=== PATIENT | male | born 1945 | race Caucasian/White ===

== ENCOUNTER 2019-10-13 10:35 | Inpatient (IN) | payer OTHER ==
[~2019-10-13] VITALS: Ht 167.6 cm; Wt 91.6 kg
[2019-10-13 10:59] VITALS: Ht 167.6 cm; Wt 91.6 kg
--- NOTE | 2019-10-13 10:59 | NUR ---
PT BIB AMBULACE, C/O TESTICULAR PAIN X4 DAY, SUDDEN ONSET. PT STATES PAIN IS SHARP. NO KNOWN INJURY TO TESTICLES PER PATIENT. PT STATES BRURNING URINATION, FLANK PAIN AND CONSTIPATION. PT PRESENT WITH LT HARD CAST HAND FX FROM 3-4 WEEKS AGO. PT STATES HX OF POSTRATE CANCER. PT STATES HE HAD A SMALL, HARD, AND BLACK IN COLOR WITHOUT BLOOD BM THIS MORNING. PT AAOX4, NO DISTRESS NOTED. PT DENIES HEADACHE, SOB, COUGH, ABDOMINAL PAIN, N/V/D. PT PLACED ON ECG MONITOR, VS TAKEN. PT PLACED ON GOWN, X2 RAILS UP. RESPIRATIONS E/U, ALL LUNG BUCKLEY CLEAR TO AUSCULTATION. CALL LIGHT WITHIN REACH AND DAUGHTER AT BEDSIDE. MSE COMPLETED BY .
[2019-10-13 11:20] LABS: BASOPHIL % 0.3 % (0-2); PLATELET COUNT 286 x10^3mcL (130-400)
[2019-10-13 11:21] LABS: RED CELL DISTRIBUTION WIDTH 14.7 % (11.5-14.5)
[2019-10-13 11:54] LABS: UA SPECIFIC GRAVITY 1.025 (1.005-1.035); microscopic required? YES; urine erythrocyte NEGATIVE (NEGATIVE)
[2019-10-13 12:09] LABS: ALKALINE PHOSPHATASE 85 U/L (46-116); ALT/SGPT 21 U/L (16-63); AST/SGOT 12 U/L (15-37); BILIRUBIN TOTAL 0.5 mg/dL (0.20-1.00); CARBON DIOXIDE 28.8 mmol/L (21-32); CHLORIDE SERUM 101 mmol/L (98-107); CREATININE SERUM 1.5 mg/dL (0.7-1.3); GLUCOSE SERUM 213 mg/dL (74-106); LIPASE 132 IU/L (73-393); POTASSIUM SERUM 4.3 mmol/L (3.5-5.1); SODIUM SERUM 135 mmol/L (136-145); TOTAL PROTEIN, SERUM 7.3 g/dL (6.4-8.2)
[2019-10-13 12:15] LABS: CALCIUM 8.8 mg/dL (8.5-10.1)
[2019-10-13 12:16] LABS: ALBUMIN 3.1 g/dL (3.4-5.0)
--- NOTE | 2019-10-13 13:08 | NUR ---
PT TAKEN FOR A CT SCAN VIA [facility].
--- NOTE | 2019-10-13 13:16 | NUR ---
ENDORESED PT TO ILANA BAKER.
[2019-10-13] MEDS ORDERED: GLIPIZIDE XL10 M1 PO (16:33)
[2019-10-13] MEDS ORDERED: TRADJENTA5 M1 PO (16:34)
[2019-10-13] MEDS ORDERED: ASPIRIN ADULT L81 M5 PO (16:35)
[2019-10-13] MEDS ORDERED: AMLODIPINE BESY1 CA1 PO (16:36)
[2019-10-13] MEDS ORDERED: LOTENSIN20 MG PO (16:37)
[2019-10-13] MEDS ORDERED: ACTOS30 M1 PO (16:38)
[2019-10-13] MEDS ORDERED: SIMVASTATIN5 M2 (16:38)
[2019-10-13] MEDS ORDERED: ZYLOPRIM100 MG PO (16:39)
[2019-10-13] MEDS ORDERED: TAMSULOSIN HCL0.4 MG PO (16:40)
[2019-10-13] MEDS ORDERED: FINASTERIDE1 MG PO (16:40)
--- NOTE | 2019-10-13 17:07 | NUR ---
REPORT GIVEN TO LAINEY BAKER, ALL QUESTIONS ADDRESSED.
--- NOTE | 2019-10-13 17:23 | NUR ---
RECEIVED PT VIA W/C FROM E/D, ACCOMPANIED BY TRANSPORTER. PT A/A/O X 4, CALM, COOPERATIVE. AMBULATORY, NO GAIT OR BALANCE IMPAIRMENT NOTED WHEN WALKING FROM W/C TO BED, HARD CAST TO 2/2 FALL 3 WKS AGO, FALL RISK PROTOCOL IN PLACE. DENIES CHEST PAIN OR DISCOMFORT AT THIS TIME. SCD BY BEDSIDE. NO ACUTE RESPIRATORY DISTRESS NOTED. ABD SOFT, ROUND, NON-TENDER, NORMOACTIVE BOWEL SOUNDS X 4 QUADS, LAST BM 10/13/2019, SMALL/HARD/BLACK. BURNING ON URINATION, C/O CONT SHARP BLQ PAIN 4/10, EXACERBATED BY MOVEMENT, RELIEVED MILDLY BY REST AND PAIN MEDICATIONS. IV SITE LAC 20G, CDI. ORIENTED PT TO ROOM, BED CONTROLS, CALL LIGHT SYSTEM. SIDE RAILS UP X 2, BED IN LOW POSITION. WILL ENDORSE TO SAMUEL RETANA.
--- NOTE | 2019-10-13 17:58 | NUR ---
BLOOD SUGAR WAS 56 THEN 62 Pt STATED HE HAS NOT ATE ANYTHING WILL GIVE FOOD Pt ON CLEAR LIQUID DIET THEN RECHECK SUGAR. Pt V/S STABLE DENIES DEIZZINESS OR PAIN. ALL NEEDS ATTENDED TO. BED IN LOWEST POSITION CALL LIGHT WITHIN REACH. WILL CONTINUE TO MONITOR.
[2019-10-13 18:04] VITALS: BP 131/68
--- NOTE | 2019-10-13 18:44 | NUR ---
Pt SITTING UP AT THE EDGE OF BED EATING DINNER TOLERATING CLEAR LIQUID DIET. Pt DENIES ANY PAIN AT THIS TIME. IV ON LAC PATENT AND INTACT. SAFETY PRECAUTIONS IN PLACE. Pt DENIES ANY N/V AT THIS TIME. ALL QUESTIONS AND CONCERNS ADDRESSED AT THIS TIME. BED IN LOWEST POSITION CALL LIGHT WITHIN REACH. WILL ENDORSE CARE TO NIGHT NURSE.
--- NOTE | 2019-10-13 20:06 | NUR ---
Pt. received from day shift, currently resting in bed awake. Pt. is a/o x4, able to make needs known, able to follow commands, no c/o h/a at this time. Pt. is breathing on RA, even and unlabored, no c/o of SOB or s/o distress. Pt. at this time has no c/o pain, resting comfortably, no c/o chest pain also. Otherwise, pt. stable, needs and questions addressed at time of shift change. Pt. safety in check w/ call light placed within reach, educated pt. on when and how to use call light system, will continue to monitor.
[2019-10-13 21:16] VITALS: BP 123/69
--- NOTE | 2019-10-14 00:40 | NUR ---
Pt. asleep throughout shift at this time. Easily arousable using verbal stimuli. Pt. has no c/o of pain, s/o distress or SOB. Pt. breathing even and unlabored and even on RA. Otherwise, pt. stable, BS 110 when checked. Medication admin tolerated as ordered, will continue to monitor pt.
[2019-10-14 05:12] VITALS: BP 120/63
--- NOTE | 2019-10-14 06:09 | NUR ---
Pt. at this time, asleep, easily arousable using verbal stimuli. Pt. noted to be asleep throughout shift, no c/o of pain, s/o SOB or acute distress. Pt. was able to void 2x during shift, no BM. Otherwise, pt. stable, needs have been met and questions addressed, will continue to monitor pt. and endorse to oncoming shift RN.
[2019-10-14 06:32] LABS: BASOPHIL % 0.4 % (0-2); PLATELET COUNT 256 x10^3mcL (130-400); RED CELL DISTRIBUTION WIDTH 14.4 % (11.5-14.5)
[2019-10-14 07:01] LABS: CALCIUM 8.2 mg/dL (8.5-10.1); CARBON DIOXIDE 28.7 mmol/L (21-32); CHLORIDE SERUM 104 mmol/L (98-107); CREATININE SERUM 1.2 mg/dL (0.7-1.3); GLUCOSE SERUM 97 mg/dL (74-106); POTASSIUM SERUM 4.2 mmol/L (3.5-5.1); SODIUM SERUM 139 mmol/L (136-145)
--- NOTE | 2019-10-14 07:10 | NUR ---
SEEN AOX4, NOT IN DISTRESS, MEDSURG, PALPABLE PULSES, NO EDEMA, CTA ON BLF, +BS, MILD PAIN AT HYPOGASTRIUM 4/10, NO WEAKNESS, FULL ROM, SKIN DRY AND INTACT, PAIN TOLERABLE, IV INTACT AND PATENT AT LAC. NO REDNESS OR INFILTRATION. CALL LIGHT WITHIN REACH. BED AT LOWEST POSITION.
[2019-10-14 08:09] VITALS: BP 123/64
--- NOTE | 2019-10-14 09:44 | NUR ---
CA 8.2. DR MILLER MADE AWARE.
--- NOTE | 2019-10-14 09:46 | NUR ---
STOOL CULTURE ORDERED PER DR MILLER.
--- NOTE | 2019-10-14 10:37 | NUR ---
MIRALAX PO GIVEN
[2019-10-14 11:38] VITALS: BP 128/69
--- NOTE | 2019-10-14 12:52 | NUR ---
ACCUCHECK DONE CBG 163. FLAGYL IVPB INFUSING WELL AT 100CC/HR. NO REDNESS OR INFITLRATION
[2019-10-14 16:13] VITALS: BP 101/68
--- NOTE | 2019-10-14 17:22 | NUR ---
ACCUCHECK DONE WITH CBG 129. NO INSULIN REQUIRED.
--- NOTE | 2019-10-14 18:23 | NUR ---
IV INFILTRATED AT RAC . REINSERTED IV AT RFA. NO REDNESS OR INFITLRATION. FLAGYL IVPB INFUSING WELL AT 100CC/HR.
--- NOTE | 2019-10-14 18:57 | NUR ---
STOOL OBTAINED FOR OCCULT BLOOD PER DR CORONADO'S ORDER.
--- NOTE | 2019-10-14 19:00 | NUR ---
DR MILLER MADE AWARE OF STOOL OCCULT POSITIVE RESULT
[2019-10-14 19:20] VITALS: BP 122/58
--- NOTE | 2019-10-14 19:20 | NUR ---
RECEIVED PT AWAKE ALERT AND VERBALLY RESPONSIVE SITIING BY THE BED.DENIES CHESTPAIN AT THIS TIME.BP 122/58 MMHG,HR 90.DENIES ABDOMINAL PAIN.NO N/V NOTED.WIOLL CONTINUE TO MONITOR.
--- NOTE | 2019-10-15 04:37 | NUR ---
PT WITH ON AND OFF SLEEPING PATTERN.DENIES ANY PAIN ALL NIGHT.NO ASE NOTED FROM LEVAQUIN AND FLAGYL IV ATB.ALL NEEDS MET.WILL CONTINUE TO MONITOR.
[2019-10-15 05:46] VITALS: BP 119/61
--- NOTE | 2019-10-15 07:10 | NUR ---
SEEN AOX4, NOT IN DISTRESS, CTA ON BLF, PALPABLE PULSES, LH EDEMA, +BS, NO PAIN AT THIS TIME, NO N/V, ABLE TO HAVE BM, VOIDS WITH NO DYSURIA, IV INTACT AND PATENT AT LFA, LH COVERED WITH CAST , CDI.
[2019-10-15 07:47] VITALS: BP 106/47
--- NOTE | 2019-10-15 09:15 | NUR ---
MIRALAX PO GIVEN.
--- NOTE | 2019-10-15 09:40 | NUR ---
PER DR CORONADO. PATIENT MOST LIKELY TO DISCHARGE AND WILL HAVE COLONOSCOPY OUTPATIENT FF UP.
--- NOTE | 2019-10-15 11:22 | NUR ---
FLAGYL IVPB INFUSING WELL AT 100CC/HR. NO REDNESS OR INFILTRATION. ACCUCHECK WITH CBG 127. NO INSULIN REQUIRED.
[2019-10-15 12:19] VITALS: BP 134/86
[2019-10-15 13:03] VITALS: BP 134/86
--- NOTE | 2019-10-15 13:56 | NUR ---
DISCHARGE INSTRUCTIONS GIVEN.INSTRUCTED TO KEEP BELONGING WITH PATIENT, TO FF UP AT PCP 10/18/19, TO TAKE PRESCRIPTION PAD TO PHARMACY OF CHOICE.
--- NOTE | 2019-10-15 15:10 | NUR ---
PATIENT DISCHARGED WITH BELONGINGS PER WHHEELCHAIR. ACCOMPANIED BY JU HADLEY.
== END 2019-10-15 15:10 | disposition home or self-care (01) | DRG 391 ==
LOC: ED 10:35 → MU 16:16
PROVIDERS: Emergency Medicine; ADMIT Internal Medicine
DX: K57.32 Diverticulitis of large intestine without perforation or abscess without bleeding (principal); N17.0 Acute kidney failure with tubular necrosis; E11.9 Type 2 diabetes mellitus without complications; C61 Malignant neoplasm of prostate; I11.0 Hypertensive heart disease with heart failure; I50.9 Heart failure, unspecified; K59.00 Constipation, unspecified; E66.9 Obesity, unspecified; K52.9 Noninfective gastroenteritis and colitis, unspecified; E78.5 Hyperlipidemia, unspecified; M19.90 Unspecified osteoarthritis, unspecified site; M10.9 Gout, unspecified; Z68.32 Body mass index [BMI] 32.0-32.9, adult; Z79.84 Long term (current) use of oral hypoglycemic drugs; Z79.899 Other long term (current) drug therapy
CPT/HCPCS: 82962; 87046; 87046-59; G0378; J0696; J1956; J2270; J2405; J3490; J7030; J7040; J7050; J7060; Q0092; Q9967